=== PATIENT | female | born 1995 | race Caucasian/White ===

== ENCOUNTER 2019-11-30 09:55 | Emergency (ER) | payer OTHER, SELFPAY ==
[2019-11-30 10:08] VITALS: BP 120/72; PULSE 90; RESP 16; TEMP 37; O2SAT 98
--- NOTE | 2019-11-30 10:49 | ED.ABDPAIN ---
HPI - Abdominal Pain General Chief Complaint: Nausea/Vomiting/Diarrhea Stated Complaint: Diarrhea/Pain on right/abdomen Time Seen by Provider: 11/30/19 10:40 Source: patient and RN notes reviewed Mode of arrival: ambulatory Limitations: no limitations History of Present Illness HPI narrative: 24-year-old female presents with concern for abdominal pain that started on . She reports a history of Crohn's disease. She reports right lower abdominal pain that radiates to the right low back, right upper abdomen. She reports loose watery stools, with intermittent bloody stools. Reports her stool quality has not changed,, however she is having some lower abdominal pain with stools that she normally does not have. She denies fever. She reports occasional vomiting. She reports her last menstrual period was 2 weeks ago. MD elicited complaint: abdominal pain Related Data Home Medications Medication Instructions Recorded Confirmed No Home Medications 11/30/19 11/30/19 Allergies Allergy/AdvReac Type Severity Reaction Status Date / Time No Known Allergies Allergy Verified 11/30/19 10:18 Review of Systems Review of Systems: Narrative: CONSTITUTIONAL: Denies malaise, chills, sweats, or fever. CARDIOVASCULAR: Denies chest pain, palpitations RESPIRATORY: Denies cough or dyspnea. GASTROINTESTINAL: Reports right lower quadrant and right upper quadrant abdominal pain, nausea, vomiting, diarrhea, occasional bloody stools. GENITOURINARY: Denies dysuria or hematuria. Reports urine Eladio SKIN: Denies rash or itching. MUSCULOSKELETAL: Reports right flank pain. Denies myalgia. All systems reviewed & are unremarkable except as noted in HPI and below PMFSH Past Medical History Medical History (Updated 11/30/19 @ 11:02 by Jenniffer Faye NP) Healthy female Social History Social History (Updated 10/23/19 @ 20:29 by Jessica Montoya PA-C) Smoking status: Current every day smoker Gender identity (if verbalized by the patient): Female Comments At time of signature, agree with nursing past medical, surgical, social and family history. There is no relevant family history pertinent to the presenting complaint Exam Narrative: Exam Narrative: GENERAL: Well-appearing, well-nourished, and in no acute distress. HEAD: Normocephalic, EYES: PERRLA, conjunctivae clear ENT: Mucous membranes moist. NECK: Supple. CHEST: Speaks in full sentences. No respiratory distress. HEART: Regular rate and rhythm. ABDOMEN: Soft, flat, nondistended. Right lower quadrant tenderness, rebound tenderness no guarding, or rigid. No pulsatilla masses. Bowel sounds present in all four quadrants. No organomegaly. No periumbilical tenderness. No Supra public tenderness or distension. Good femoral pulses bilaterally. No hernia noted. No scars or surface trauma. SKIN: Warm, dry, no rash. NEURO: Alert and oriented x3. PSYCH: Normal mood and affect Course Course Emergency Course: Patient is aware of, understands and agrees to reasons to be seen in emergency department. Patient agrees to proceed directly to the emergency department. Portions of this record may have been created with voice recognition software Vital Signs Vital signs: Vital Signs Temperature 98.6 F 11/30/19 10:08 Pulse Rate 90 11/30/19 10:08 Respiratory Rate 16 11/30/19 10:08 Blood Pressure 120/72 11/30/19 10:08 Pulse Oximetry 98 11/30/19 10:08 Temperature 98.6 F 11/30/19 10:08 Pulse Rate 90 11/30/19 10:08 Respiratory Rate 16 11/30/19 10:08 Blood Pressure 120/72 11/30/19 10:08 Pulse Oximetry 98 11/30/19 10:08 Reviewed. Transfer Transfered to: [facility] Transportation: Other (Private vehicle) Transfer rationale: Abdominal pain Accepting physician: Dr. Gould Transfer comments: Patient stable for transfer via private vehicle MDM - Abdominal Pain MDM Narrative Medical decision making narrative: Patient's history and exam war
== END 2019-11-30 10:58 | disposition short-term general hospital (02) ==
PROVIDERS: Emergency Provider Nurse Practitioner; PCP Emergency Medicine
DX: R10.31 Right lower quadrant pain (principal); F17.200 Nicotine dependence, unspecified, uncomplicated; K50.90 Crohn's disease, unspecified, without complications
CPT/HCPCS: 81003; 99212; G0463

== ENCOUNTER → 2021-02-24 02:25 | Outpatient (CLI) | payer OTHER, SELFPAY ==
[2021-02-25 15:32] LABS: SARS-CoV-2 RNA PCR Negative
== END ==
PROVIDERS: PCP Emergency Medicine; Visit Provider Internal Medicine Gastroenterology
DX: Z01.812 Encounter for preprocedural laboratory examination (principal); Z20.822 Contact with and (suspected) exposure to COVID-19
CPT/HCPCS: C9803; U0003; U0005

== ENCOUNTER 2021-02-28 01:13 | Day surgery (SDC) | payer OTHER, SELFPAY ==
[2021-02-13 15:39] VITALS: BMI 16.7
[2021-02-28 11:40] VITALS: BP 103/63; PULSE 68; RESP 16; TEMP 36.3; O2SAT 99; BMI 15.8
[2021-02-28] MEDS: LACTATED RINGERS 1,000 ML 150 ML IV CONT (11:52)
--- NOTE | 2021-02-28 12:43 | WPDANESEPPF ---
Anes - Initial Pre Proc Eval Procedure: Operation Date: 02/28/21 13:15 Proposed Procedures p Esophagogastroduodenoscopy & Colonoscopy - Michael Hernandez MD Date/Time: 02/28/21 12:43 Surgeon: Michael Hernandez MD Pre Op Diagnosis: abdominal pain, constpation Patient Data Age: 25 Gender: F Height: 5 ft 3 in Weight: 40.6 kg Last Vital Signs Temp 97.4 F L 02/28/21 11:40 Pulse 68 02/28/21 11:40 Resp 16 02/28/21 11:40 BP 103/63 02/28/21 11:40 Pulse Ox 99 02/28/21 11:40 Allergies Allergy/AdvReac Type Severity Reaction Status Date / Time No Known Allergies Allergy Verified 02/28/21 11:39 Home Medications Medication Instructions Recorded Confirmed Type dextroamphetamine-amphetamine 20 mg PO DAILY 02/13/21 02/13/21 History [Adderall] lamotrigine [Lamictal] 25 mg PO DAILY 02/13/21 02/13/21 History venlafaxine [Effexor] 37.5 mg PO BID 02/13/21 02/13/21 History Patient hx anesthesia problems: none Family hx anesthesia problems: none PMFSH Past Medical History Medical History (Updated 02/27/21 @ 13:08 by Addy Gandara DO) Anorexia Anxiety Depression Scoliosis Surgical History Surgical History (Updated 02/27/21 @ 13:08 by Addy Gandara DO) History of tonsillectomy Social History Social History (Updated 10/23/19 @ 20:29 by Jessica Montoya PA-C) Smoking status: Current every day smoker Tobacco type: cigarettes Alcohol intake: never Substance use: current Substance use type: marijuana Other substance usage details: every day Living arrangements: with family Gender identity (if verbalized by the patient): Female Spiritual care concerns: No Anes - Eval Final PreProcedure Day of Procedure 02/28/21 12:43 Patient weight: normal Heart: regular rate and rhythm Lungs: clear to auscultation Airway: Mallampati scale class II Neurological: alert and oriented Last oral intake: >/= 8 hours ASA classification: II Emergent: yes Anesthetic plan: proceed Anesthesia type and monitoring: general GIVS and standard monitoring Informed Consent: The patient's anesthetic plan and its attendant risks and benefits were discussed with the patient/family/POA. Questions were solicited and answers provided to the satisfaction of the patient/family/POA.
--- NOTE | 2021-02-28 13:22 | PM.HPGS ---
History of Present Illness History of Present Illness Consent: Risks, benefits, and alternatives have been discussed and questions answered. Patient agrees to proceed with procedure. Chief complaint: abdominal pain, constpation Narrative: María Nelson is a 25 year old female with diffuse abdominal pain sometimes worse after eating, no abdominal surgeries and never had scopes, also had blood in stools, denies diarrhea. Review of Systems Constitutional: Constitutional: Denies headache(s) and Denies weakness Eyes: Eyes: Denies blurry vision ENT: Reports Normal hearing present, Denies headache(s) and Denies neck pain Cardiovascular: Cardiovascular: Denies chest pain and Denies dyspnea Respiratory: Respiratory: Denies dyspnea Gastrointestinal: Gastrointestinal: Reports no additional gastrointestinal complaints Genitourinary: Genitourinary: Denies dysuria Musculoskeletal: Musculoskeletal: Denies neck pain Integumentary/Breasts: Skin/Breast: Denies dry skin Neurologic: Reports Normal hearing present, Denies headache(s) and Denies weakness Psychiatric: Psychiatric: Denies anxiety Endocrine: Endocrine: Denies change in body appearance Hematologic/Lymphatic: Hematologic/Lymphatic: Denies easy bleeding Allergic/Immunologic: Allergic/Immunologic: Denies urticaria PMFSH Past Medical History Medical History (Updated 02/28/21 @ 13:23 by Michael Hernandez MD) Anorexia Anxiety Blood in stool Depression Scoliosis Surgical History Surgical History (Updated 02/27/21 @ 13:08 by Addy Gandara DO) History of tonsillectomy Social History Social History (Updated 10/23/19 @ 20:29 by Jessica Montoya PA-C) Smoking status: Current every day smoker Tobacco type: cigarettes Alcohol intake: never Substance use: current Substance use type: marijuana Other substance usage details: every day Living arrangements: with family Gender identity (if verbalized by the patient): Female Spiritual care concerns: No Meds Home Medications and Allergies Home Medications Medication Instructions Recorded Confirmed Type dextroamphetamine-amphetamine 20 mg PO DAILY 02/13/21 02/13/21 History [Adderall] lamotrigine [Lamictal] 25 mg PO DAILY 02/13/21 02/13/21 History venlafaxine [Effexor] 37.5 mg PO BID 02/13/21 02/13/21 History Allergies Allergy/AdvReac Type Severity Reaction Status Date / Time No Known Allergies Allergy Verified 02/28/21 11:39 Vital Signs Vital Signs - 24 hr 02/28/21 11:40 Temperature 97.4 F L Pulse Rate 68 Respiratory Rate 16 Blood Pressure 103/63 Pulse Oximetry 99 Exam Const: General: comfortable and no acute distress HENMT: General nose exam: Normal nares present Eyes: General: appearance normal, both eyes and all related structures Neck: Neck: no JVD Resp: Auscultation: clear to auscultation bilaterally Cardio: Rate: regular rate Rhythm: regular rhythm GI: Inspection: non-distended GI Palp: Yes Soft to palpation Skin: General skin exam: normal color Neuro: General: gait normal Speech: normal speech Extrem: General: normal to inspection Psych: Mental Status: mental status grossly normal Assessment and Plan Assessment and plan (1) Abdominal pain: Qualifiers: Abdominal location: right lower quadrant Qualified Code(s): R10.31 - Right lower quadrant pain Code(s): R10.9 - Unspecified abdominal pain Status: Inactive Assessment and Plan: egd with bx (2) Blood in stool: Code(s): K92.1 - Melena Status: Acute Assessment and Plan: colonoscopy
[2021-02-28] MEDS: BENZOCAINE (*SP) 60 ML SPRAY CAN (HURRICAINE) 1 SPRAY MUCOUS MEM (13:24)
[2021-02-28 13:49] VITALS: BP 87/45; PULSE 85; RESP 20; O2SAT 95
[2021-02-28 13:59] VITALS: BP 108/60; PULSE 85; RESP 18; O2SAT 100
[2021-02-28 14:09] VITALS: BP 110/59; PULSE 84; RESP 18; O2SAT 100
== END 2021-02-28 14:18 | disposition home or self-care (01) ==
PROVIDERS: PCP Emergency Medicine; Visit Provider Internal Medicine Gastroenterology
PROC: 0DJ08ZZ Inspection of Upper Intestinal Tract, Via Natural or Artificial Opening Endoscopic (ICD-10-PCS; CPT 43235; principal; 2021-02-28 13:15)
DX: K92.1 Melena (principal); K64.8 Other hemorrhoids; R10.84 Generalized abdominal pain; F41.8 Other specified anxiety disorders; F12.90 Cannabis use, unspecified, uncomplicated
CPT/HCPCS: 45378; 43239; 88305; C9803; J2001; J2704; J7120; U0003; U0005

== ENCOUNTER 2022-04-24 17:50 | Emergency (ER) | payer OTHER, SELFPAY ==
--- NOTE | ~2022-04-24 | CT_ITS ---
EXAMINATION: CT abdomen pelvis w con DATE: 04/24/2022 19:41 INDICATION: abd pain TECHNIQUE: Computed tomography (CT) of the abdomen and pelvis was performed with 100 mL Omnipaque-300 intravenous contrast. Automated exposure control and iterative reconstruction technique were employe d. The dose-length product was 186.52 mGy-cm. COMPARISON: 10/23/2019. FINDINGS: Lower thorax: Unremarkable Liver: Normal. Biliary/Gallbladder: Gallbladder is normal. No bile duct dilation. Pancreas: No mass or duct dilation. Spleen: Normal. Adrenals:No mass. Kidneys: No mass, stone, or hydronephrosis. GI tract: No small or large bowel dilation. Normal appendix. Mesentery/Peritoneum: No ascites, mass, or free air. Retroperitoneum: No mass. Pelvis: Pelvic organs are within normal limits. IUD, in good position. Physiologic free pelvic fluid. Soft Tissues: Soft tissues and body wall unremarkable. Bones: No acute osseous finding. IMPRESSION: No acute abdominopelvic process. Reviewed, dictated and finalized at location K.
[2022-04-24 17:53] VITALS: BP 124/78; PULSE 74; RESP 18; TEMP 36.4; O2SAT 100
[2022-04-24 18:38] LABS: Basophils Percent Auto 0.5 % (0.2-1.2); Eosinophils Percent Auto 0.5 % (0-4.4); Hematocrit 39.4 % (37.0-47.0); Hemoglobin 12.3 g/dL (12.0-15.0); Immature Granulocyte Absolute 0.02 K/mm3 (0.00-0.031); Immature Granulocyte Percent A 0.4 % (0-0.5); Lymphocytes Absolute Auto 1.77 K/mm3 (0.9-3.2); Lymphocytes Percent Auto 32.4 % (18.3-44.2); Mean Corpuscular HGB Conc 31.2 g/dl (32-36); Mean Corpuscular Hemoglobin 28.9 pg (26-34); Mean Corpuscular Volume 92.5 fl (80-100); Mean Platelet Volume 10.2 fl (7.4-10.4); Monocytes Absolute Auto 0.4 K/mm3 (0.1-0.6); Monocytes Percent Auto 7.3 % (2.6-8.5); Neutrophils Absolute Auto 3.2 K/mm3 (1.3-6.7); Neutrophils Percent Auto 58.9 % (45.5-73.1); Platelet Count Result 221 k/mm3 (150-375); Red Blood Count 4.26 M/mm3 (4.2-5.4); Red Cell Distribution Width 13.9 % (11.5-14.5); White Blood Count 5.5 K/mm3 (4.5-10.0)
[2022-04-24 18:49] LABS: Alanine Aminotransferase 15 U/L (6-35); Albumin Level 4.9 g/dL (3.5-5.1); Alkaline Phosphatase 47 U/L (38-126); Anion Gap 8 mmol/L (8-16); Aspartate Amino Transferase 22 U/L (14-36); Bilirubin,Total 0.7 mg/dL (0.2-1.3); Blood Urea Nitrogen 6 mg/dL (7-17); Calcium 9.1 mg/dL (8.4-10.2); Carbon Dioxide 24 mmol/L (22-30); Chloride 106 mmol/L (98-107); Estimated CRCL calculation 80 ml/min; Estimated Glomerular Filt Rate > 60; Glucose 99 mg/dL (65-110); Lipase 50 U/L (23-300); Potassium 4.2 mmol/L (3.4-5.0); Sodium 138 mmol/L (137-145)
[2022-04-24 18:59] LABS: Appearance Urine Clear (Clear); Bilirubin Urine Negative (Negative); Blood Urine 1+ (Negative); Color Urine Yellow (Yellow); Glucose Urine UA Negative (Negative); Ketones Urine Negative (Negative); Leukocyte Esterase Ur 1+ LEU/UL (Negative); Nitrate Urine Negative (Negative); Protein Urine Negative (Negative); Specific Grav Ur 1.015 (1.001-1.035); Urobilinogen Urine 0.2 mg/dL (<2.0)
[2022-04-24 19:01] VITALS: BP 114/69; PULSE 58
[2022-04-24 19:02] VITALS: BP 109/72; PULSE 67
[2022-04-24 19:03] VITALS: BP 108/71; PULSE 64
[2022-04-24 19:13] LABS: Bacteria Urine Trace /hpf; RBC Urine 0-2 /hpf (0-2); Squamous Epithelial Cell Urine Few /hpf (Few); WBC Urine 0-3 /hpf
--- NOTE | 2022-04-24 19:19 | ED.NAVMDI ---
HPI - Nausea/Vomiting/Diarrhea General Chief complaint: Nausea/Vomiting/Diarrhea Stated complaint: N/V, blood in stool Time Seen by Provider: 04/24/22 19:01 Source: RN notes reviewed History of Present Illness HPI Narrative: Patient presents emergency department from home for diarrhea. Patient states she has had approximately 8 episodes of diarrhea a day for the past 2 weeks. States that the diarrhea is mainly liquid stool but does have some bright red blood in it. States associate with abdominal pain located on the right side of the abdomen described as cramping. States she had a subjective fever yesterday but denies any fever today she denies any chest pain shortness of breath nausea vomiting or any other symptoms. States she does have a history of borderline Crohn's disease with last colonoscopy 2 years ago but does not recall who did her colonoscopy she is followed by her PCP Dr. Artis Related Data Home Medications Medication Instructions Recorded Confirmed dextroamphetamine-amphetamine 20 20 mg PO DAILY 02/13/21 02/13/21 mg tablet (Adderall) lamotrigine 25 mg chewable 25 mg PO DAILY 02/13/21 02/13/21 dispersible tablet (Lamictal) venlafaxine 37.5 mg tablet 37.5 mg PO BID 02/13/21 02/13/21 Allergies Allergy/AdvReac Type Severity Reaction Status Date / Time No Known Allergies Allergy Verified 04/24/22 19:06 Review of Systems Review of Systems: Gen.: Denies fevers or chills ENT: Denies congestion Respiratory: Denies shortness of breath or cough CV: Denies chest pain or palpitations GI: HPI Musculoskeletal: Denies back pain or muscle pain Neuro: Denies numbness, tingling, weakness or focal weakness Skin: Denies rash Except as documented, all other systems reviewed and negative [facility] Past Medical History Medical History Anorexia Anxiety Blood in stool Depression Scoliosis Surgical History Surgical History (Updated 02/27/21 @ 13:08 by Addy Gandara DO) History of tonsillectomy Social History Social History Smoking status: Current every day smoker Tobacco type: cigarettes Alcohol intake: never Substance use: current Substance use type: marijuana Other substance usage details: every day Gender identity (if verbalized by the patient): Female Spiritual care concerns: No Exam Narrative: APPEARANCE: No acute distress, nontoxic, resting in bed EYES: EOMI HEENT: Normocephalic, atraumatic, OMM RESPIRATORY: No respiratory distress Clear to auscultation bilaterally with no rhonchi wheezing or rales. CARDIOVASCULAR: Regular rate and rhythm without murmurs rubs or gallops. ABDOMINAL: Soft, nondistended tender to palpation in right upper quadrant and right lower quadrant no tenderness left upper quadrant left lower quadrant no rebound or guarding Rectal: No hemorrhoids or fissures no active bleeding small amount of soft brown stool that is Hemoccult negative MUSCULOSKELETAl: Moves all extremities. No clubbing, cyanosis or edema. NEURO: Awake and alert. Following commands, speech normal, no focal deficits SKIN:: Warm, dry. No rashes lesions or abrasions PSYCHIATRIC: Normal affect/mood, Course Course Emergency Course: Patient states that they are feeling much better at this time. States abdominal pain has resolved. Repeat abdominal exam shows the patient's abdomen to be soft and nontender. Discussed with patient results of workup and diagnosis. Discussed need for follow-up with primary care physician, reasons to return to the emergency department in proper use of medication. Patient understands and agrees to current treatment plan Vital Signs Vital signs: Vital Signs Temperature 97.6 F 04/24/22 17:53 Pulse Rate 74 04/24/22 17:53 Respiratory Rate 18 04/24/22 17:53 Blood Pressure 124/78 04/24/22 17:53 Pulse Oximetry 100 04/24/22 17:53 Oxygen Delivery Room A
[2022-04-24 19:21] LABS: Add Urine Microscopic? YES
[2022-04-24] MEDS: SODIUM CHLORIDE 0.9% IV 1,000 ML 999 ML IV CONT (19:27)
[2022-04-24 20:25] LABS: Lactic Acid Reflex 0.7 mmol/L (0.7-2.0)
[2022-04-24 20:27] LABS: INR 1.2; Prothrombin Time 14.6 Seconds (11.1-14.7)
[2022-04-24 20:28] LABS: Partial Thromboplastin Time 32.8 SECONDS (22.3-36.8)
[2022-04-24 20:49] VITALS: BP 116/64; PULSE 68; RESP 16; O2SAT 100
== END 2022-04-24 20:50 | disposition home or self-care (01) ==
PROVIDERS: Emergency Medicine; Emergency Provider Emergency Medicine; PCP Emergency Medicine
DX: R10.31 Right lower quadrant pain (principal); F17.210 Nicotine dependence, cigarettes, uncomplicated
CPT/HCPCS: 36415; 74177; 80053; 81001; 81025; 83605; 83690; 85025; 85610; 85730; 96361; 96365; 99284; J0131; J7030; Q9967

== ENCOUNTER 2023-06-25 10:38 | Emergency (ER) | payer OTHER, SELFPAY ==
--- NOTE | ~2023-06-25 | CT_ITS ---
EXAMINATION: CT brain wo con DATE: 06/25/2023 12:38 INDICATION: Headache. TECHNIQUE: Computed tomography (CT) of the head was performed without intravenous contrast. The mA wa s adjusted according to patient size. Iterative reconstruction technique was employed. The dose-lengt h product was 529.67 mGy-cm. COMPARISON: None FINDINGS: There is no intracranial hemorrhage, acute infarction, or abnormal intracranial mass lesion . The ventricles are normal in size. The orbits are normal. The mastoid air cells are normal. The par anasal sinuses are clear. IMPRESSION: 1. Normal brain. Reviewed, dictated and finalized at location A. IMPRESSION: 1. Normal brain.
[2023-06-25 11:47] VITALS: BP 118/71; PULSE 70; RESP 16; TEMP 36.2; O2SAT 100
--- NOTE | 2023-06-25 12:10 | ED.HA ---
HPI - Headache General Chief Complaint: Headache Stated Complaint: gloria for weeks Time Seen by Provider: 06/25/23 11:59 History of Present Illness HPI Narrative: 27-year-old female reports for evaluation for headaches for the past 6 months, worsening over the past day. Patient states she had a head injury a few years ago and has had intermittent headaches since. For the past 6 months, she has had frequent headaches that occur every day to every other day. She says for the past day it is increasingly gotten worse. She reports she recently got dropped by her PCP and is not sure why. She has been calling other PCP offices who advised her to come to the ED for further evaluation. She states at times she feels dizzy when she quickly moves her head and better when sitting still. She reports associated photophobia and phonophobia. States the headache occurs in the occiput and travels to the front of her head, mostly on the right side. She denies nuchal rigidity, fever, current nausea or vomiting however does state that at times she has nausea and vomiting with the headaches. She reports taking Excedrin this morning at 0900 without relief. She denies recent injury or trauma. States at times she walks into [place] and has bluured vision and double vision. She is denying vision changes currently. She he has not had any prior imaging of her head. Related Data Home Medications Medication Instructions Recorded Confirmed dextroamphetamine-amphetamine 20 20 mg PO DAILY 02/13/21 02/13/21 mg tablet (Adderall) lamotrigine 25 mg chewable 25 mg PO DAILY 02/13/21 02/13/21 dispersible tablet (Lamictal) venlafaxine 37.5 mg tablet 37.5 mg PO BID 02/13/21 02/13/21 Allergies Allergy/AdvReac Type Severity Reaction Status Date / Time No Known Allergies Allergy Verified 04/24/22 19:06 Review of Systems Review of Systems: CONSTITUTIONAL: Denies fever, chills EYES: Denies visual changes, redness, or discharge. ENT: Denies rhinorrhea, congestion, sore throat, or otalgia. CARDIOVASCULAR: Denies chest pain, palpitations, or edema. RESPIRATORY: Denies cough or dyspnea. GASTROINTESTINAL: See HPI GENITOURINARY: Denies dysuria or hematuria. SKIN: Denies rash or itching. MUSCULOSKELETAL: Denies back pain, joint pain, or myalgia. NEUROLOGIC: See HPI PSYCHIATRIC: Denies anxiety or depression. [facility] Past Medical History Medical History Anorexia Anxiety Blood in stool Depression Scoliosis Surgical History Surgical History History of tonsillectomy Social History Social History Smoking status: Current every day smoker Tobacco type: cigarettes Alcohol intake: never Substance use: current Substance use type: marijuana Other substance usage details: every day Living arrangements: with family Gender identity (if verbalized by the patient): Female Spiritual care concerns: No Exam Narrative: GENERAL: Well-appearing, in no acute distress. Patient resting comfortably in exam bed. She is pleasant and conversational. HEAD: Normocephalic EYES: PERRLA, EOMI ENT: Nares clear. Mucous membranes moist. Oropharynx without tonsillar hypertrophy exudate or other lesions. Bilateral TMs are rao nonbulging, no effusions NECK: Supple. CHEST: No respiratory distress. Clear to auscultation, no adventitious breath sounds. HEART: Regular rate and rhythm. No murmur heard. Normal peripheral pulses. ABDOMEN: Soft, nontender, normal active bowel sounds. EXTREMITIES: Normal range of motion. No edema. SKIN: Warm, dry, no rash. NEURO: No focal deficits. Alert and oriented x3. Cranial nerves II through XII intact. Strength 5/5 in bilateral upper and lower extremities. Sensation intact throughout. No pronator drift. Normal [id number]. Patient ambulating without at
[2023-06-25] MEDS: SODIUM CHLORIDE 0.9% IV 1,000 ML 999 ML IV CONT (12:23)
[2023-06-25] MEDS: KETOROLAC 30 MG/ML VIAL (*BKC) IV PUSH (12:24)
[2023-06-25] MEDS: diphenhydrAMINE HCl INJ 50 MG/ML VIAL 25 MG IV PUSH (12:25)
[2023-06-25 12:40] LABS: Basophils Percent Auto 0.4 % (0.2-1.2); Eosinophils Absolute Auto 0.1 K/mm3 (0-0.3); Eosinophils Percent Auto 0.7 % (0-4.4); Hematocrit 39.8 % (37.0-47.0); Hemoglobin 12.7 g/dL (12.0-15.0); Immature Granulocyte Absolute 0.01 K/mm3 (0.00-0.031); Immature Granulocyte Percent A 0.1 % (0-0.5); Lymphocytes Absolute Auto 2.45 K/mm3 (0.9-3.2); Lymphocytes Percent Auto 25.1 % (18.3-44.2); Mean Corpuscular HGB Conc 31.9 g/dl (32-36); Mean Corpuscular Hemoglobin 30.5 pg (26-34); Mean Corpuscular Volume 95.4 fl (80-100); Mean Platelet Volume 9.8 fl (7.4-10.4); Monocytes Absolute Auto 0.6 K/mm3 (0.1-0.6); Neutrophils Absolute Auto 6.6 K/mm3 (1.3-6.7); Neutrophils Percent Auto 67.7 % (45.5-73.1); Platelet Count Result 249 k/mm3 (150-375); Red Blood Count 4.17 M/mm3 (4.2-5.4); Red Cell Distribution Width 12.7 % (11.5-14.5); White Blood Count 9.8 K/mm3 (4.5-10.0)
[2023-06-25 12:44] LABS: Appearance Urine Clear (Clear); Bacteria Urine None Seen /hpf; Bilirubin Urine Negative (Negative); Blood Urine 1+ (Negative); Color Urine Yellow (Yellow); Glucose Urine UA Negative (Negative); Ketones Urine Negative (Negative); Leukocyte Esterase Ur 1+ LEU/UL (Negative); Nitrate Urine Negative (Negative); Non Pathogenic Casts 0-2; Protein Urine Negative (Negative); Specific Grav Ur 1.021 (1.001-1.035); Squamous Epithelial Cell Urine Occasional /hpf (Few); Urobilinogen Urine 0.2 mg/dL (<2.0)
[2023-06-25 12:46] LABS: Add Urine Microscopic? YES
[2023-06-25 12:54] LABS: Alanine Aminotransferase 20 U/L (6-35); Albumin Level 4.7 g/dL (3.5-5.1); Alkaline Phosphatase 57 U/L (38-126); Anion Gap 6 mmol/L (8-16); Aspartate Amino Transferase 24 U/L (14-36); Bilirubin,Total 0.4 mg/dL (0.2-1.3); Blood Urea Nitrogen 8 mg/dL (7-17); Calcium 9.2 mg/dL (8.4-10.2); Carbon Dioxide 27 mmol/L (22-30); Chloride 105 mmol/L (98-107); Estimated CRCL calculation 68 ml/min; Estimated Glomerular Filt Rate > 60; Glucose 92 mg/dL (65-110); Potassium 4.3 mmol/L (3.4-5.0); Sodium 138 mmol/L (137-145)
[2023-06-25] MEDS: PROCHLORPERAZINE EDISYLATE 10 MG/2 ML VIAL IV PUSH (12:56)
[2023-06-25 13:57] VITALS: BP 110/62; PULSE 70; RESP 18; O2SAT 100
== END 2023-06-25 13:58 | disposition home or self-care (01) ==
PROVIDERS: Emergency Provider Physician Assistant
DX: R51.9 Headache, unspecified (principal); F41.9 Anxiety disorder, unspecified; F32.A Depression, unspecified; F17.210 Nicotine dependence, cigarettes, uncomplicated
CPT/HCPCS: 36415; 70450; 80053; 81001; 81025; 85025; 87086; 87088; 87147; 96361; 96374; 96375; 99284; J0780; J1200; J1885; J7030